=== PATIENT | male | born 1965 | race Caucasian/White ===

== ENCOUNTER 2016-10-18 18:17 | Emergency (ER) | payer OTHER ==
[~2016-10-18] VITALS: Ht 174 cm; Wt 93.0 kg
[2016-10-18 18:42] VITALS: BP 152/93
[2016-10-18] MEDS ORDERED: CLIN150C14 PO (18:44)
[2016-10-18] MEDS ORDERED: OXYC-323 PO (18:46)
--- NOTE | 2016-10-18 18:47 | PHYS DOC ---
Past Medical History Past Medical History: No Pertinent History Past Surgical History: No Surgical History Alcohol Use: Occasionally Drug Use: None Adult General Chief Complaint Chief Complaint: INSECT BITE HPI HPI Patient is a 51 year old male who presents with right arm pain erythema and swelling for 24 hours after mowing his yard and brushing his arm underneath a tree branch thinks he was bitten or stung by an insect. Denies fevers nausea or vomiting. More pain and swelling and spread of erythema today. No numbness or tingling in the hand. Review of Systems Review of Systems Constitutional: Denies fever or chills [] Eyes: Denies change in visual acuity, redness, or eye pain [] HENT: Denies nasal congestion or sore throat [] Respiratory: Denies cough or shortness of breath [] Cardiovascular: No additional information not addressed in HPI [] GI: Denies abdominal pain, nausea, vomiting, bloody stools or diarrhea [] : Denies dysuria or hematuria [] Musculoskeletal: Denies back pain or joint pain [] Integument: Denies rash or skin lesions [] Neurologic: Denies headache, focal weakness or sensory changes [] Endocrine: Denies polyuria or polydipsia [ All review systems are negative except as noted in the history of present illness] Current Medications Current Medications Current Medications Medications (Trade) Dose Ordered Sig/[facility] Start Time Stop Time Status Last Admin Dose Admin Diphenhydramine HCl (Benadryl) 25 mg 1X ONCE 10/18/16 19:00 10/18/16 19:01 DC Ibuprofen (Motrin) 600 mg 1X ONCE 10/18/16 19:00 10/18/16 19:01 DC Allergies Allergies Allergies Coded Allergies Type Severity Reaction Last Updated Verified No Known Allergies Allergy Unknown 11/20/13 Yes Physical Exam Physical Exam Constitutional: Well developed, well nourished, no acute distress, non-toxic appearance. [] HENT: Normocephalic, atraumatic, bilateral external ears normal, oropharynx moist, no oral exudates, nose normal. [] Eyes: PERRLA, EOMI, conjunctiva normal, no discharge. [] Neck: Normal range of motion, no tenderness, supple, no stridor. [] Cardiovascular:Heart rate regular rhythm, no murmur [] Lungs & Thorax: Bilateral breath sounds clear to auscultation [] Abdomen: Bowel sounds normal, soft, no tenderness, no masses, no pulsatile masses. [] Skin: Warm, dry, no erythema, no rash. [] Back: No tenderness, no CVA tenderness. [] Extremities: An area of erythema on the volar forearm and no obvious puncture wounds or foreign body seen or palpable., no cyanosis, no clubbing, ROM intact, 2+ pulses in the wrist neurovascularly intact in the hand. [] Neurologic: Alert and oriented X 3, normal motor function, normal sensory function, no focal deficits noted. [] Psychologic: Affect normal, judgement normal, mood normal. [] Current Patient Data Vital Signs Vital Signs Date Time Temp Pulse Resp B/P (MAP) Pulse Ox O2 Delivery O2 Flow Rate FiO2 10/18/16 18:42 99.8 99 18 100 Room Air 99.8 10/18/16 18:39 152/93 (112) EKG EKG [] Radiology/Procedures Radiology/Procedures [] Course & Med Decision Making Course & Med Decision Making Pertinent Labs and Imaging studies reviewed. (See chart for details) Clinically this appears to be most consistent with an insect bite with possible secondary skin infection we'll treat with Benadryl and some antibiotics orally. No indication for exploration of the forearm or ultrasound or MRI at this point in time. Advised patient to return if symptoms worsen significantly or comes to a head. [ The patient declined IV medication] Dragon Disclaimer Dragon Disclaimer This electronic medical record was generated, in whole or in part, using a voice recognition dictation system. Departure Departure Impression: Primary Impression: Infected insect bite of forearm Disposition: HOME, SELF-CARE Condition: STABLE Referrals: JOCE LACKEY MD (PCP) Patient Instructions: Insect Bite, [id number], Skin Infections Scripts Oxycodone/Apap 5-325 (PERCOCET 5-325 MG TABLET) 1 Each Tablet 1-2 TAB PO Q4-6HRS for PAIN MDD 8 for 5 Days, #12 TAB Prov: KYLIE WILCOX MD 10/18/16 Clindamycin Hcl (CLINDAMYCIN HCL) 150 Mg Capsule 2 CAP PO QID for 7 Days, #56 CAP Prov: KYLIE WILCOX MD 10/18/16 KYLIE WILCOX MD Oct 18, 2016 18:47
[2016-10-18] MEDS ORDERED: IBUPROFEN 600 MG TABLET. PO ONE (19:00)
[2016-10-18] MEDS ORDERED: diphenhydrAMINE HCL 25 MG CAPSULE PO ONE (19:00)
== END 2016-10-18 19:01 | disposition home or self-care (01) ==
LOC: ER 18:17
DX: S50.861A Insect bite (nonvenomous) of right forearm, initial encounter (principal); L08.9 Local infection of the skin and subcutaneous tissue, unspecified; W57.XXXA Bitten or stung by nonvenomous insect and other nonvenomous arthropods, initial encounter; Y93.89 Activity, other specified; Y92.89 Other specified places as the place of occurrence of the external cause; Y99.8 Other external cause status
CPT/HCPCS: 99283